=== PATIENT | male | born 1940 | race Caucasian/White ===

== ENCOUNTER 2018-02-01 12:01 | Inpatient (IN) | payer MEDICARE ==
[2018-02-01 12:53] LABS: #Eosinphils 0.1 thou/uL (0.0-0.7); #Lymphocytes 0.4 thou/uL (1.20-3.40); #Monocytes 0.5 thou/uL (0.11-0.59); #Neutrophils 2.6 thou/uL (1.40-6.50); %Basophils 0.3 % (0.0-1.0); %Lymphocytes 11.5 % (21.0-51.0); %Monocytes 12.4 % (0.0-10.0); %Neutrophils 71.8 % (42.0-75.0); Hemoglobin 12.3 g/dL (14.0-18.0); Mean Corpuscular HGB CONC 32.4 g/dL (32.0-36.0); Mean Corpuscular Hemoglobin 33.8 pg (27.0-31.0); Platelet Count 111 thou/uL (130-400); RBC Distribution Width 12.3 % (11.5-14.5); Red Blood Cell (RBC) Count 3.64 mill/uL (4.70-6.10); White Blood Cell (WBC) Count 3.6 thou/uL (4.8-10.8)
[2018-02-01 12:56] LABS: Bilirubin Negative (Negative); Blood, Urine Negative (Negative); Clarity CLEAR (Clear); Glucose, Urine (Dipstick) Negative (Negative); Leukocyte Negative (Negative); Nitrite Negative (Negative); Protein, Urine (Dipstick) Negative (Neg-Trace); Specific Gravity, Urine 1.011 (1.002-1.036); pH, Urine 7.5 (5.0-9.0)
[2018-02-01 13:13] LABS: Lactic Acid 0.6 mmol/L (0.5-2.2)
[2018-02-01 13:17] LABS: ALT (SGPT) 10 U/L (8-55); AST (SGOT) 20 U/L (5-34); Albumin 3.8 g/dL (3.4-4.8); Alkaline Phosphatase 60 U/L (40-150); Anion Gap 12 mmol/L (10-20); BUN (Urea Nitrogen) 22 mg/dL (8.4-25.7); Bilirubin, Total 1.1 mg/dL (0.2-1.2); CK (CPK) 56 U/L (30-200); Calc. Creatinine Clearance 0 mL/min (70-130); Calcium 8.6 mg/dL (7.8-10.44); Carbon Dioxide 33 mmol/L (23-31); Chloride 94 mmol/L (98-107); Estimated GFR-MDRD 65; Globulin 2.5 g/dL (2.4-3.5); Glucose 92 mg/dL (83-110); Potassium 3.7 mmol/L (3.5-5.1); Protein, Total 6.3 g/dL (5.8-8.1); Sodium 135 mmol/L (136-145)
[2018-02-01 13:20] LABS: Troponin I 0.021 ng/mL (< 0.028)
--- NOTE | 2018-02-01 13:46 | RAD ---
FRONTAL RADIOGRAPH CHEST PORTABLE UPRIGHT: Date: 02/01/18 COMPARISON: 12/15/16. HISTORY: Cough. FINDINGS: Stable three lead left subclavian AICD. No pneumothorax is evident. There is new increased density in the left lung base with blunting of the left costophrenic angle and obscuration of the left hemidiap hragm. Extensive coronary arterial calcification and/or stent material noted. There is blunting of th e costophrenic angles suggesting small bilateral pleural effusions. There is pulmonary vascular conge stion and perihilar interstitial prominence. Stable prominence of the cardiac silhouette. IMPRESSION: Pulmonary vascular congestion with perihilar interstitial prominence, bilateral small pleural effusio ns, and focal opacity in the left base. Findings suggest pulmonary edema. Infectious pneumonitis or a spiration cannot be excluded. Follow-up imaging following treatment advised. POS: [facility]
[2018-02-01 16:31] LABS: Troponin I 0.017 ng/mL (< 0.028)
[2018-02-01] MEDS ORDERED: Acetaminophen 325 MG TAB PO PRN (17:05)
[2018-02-01] MEDS ORDERED: Ondansetron HCl/PF 4 MG/2 ML Vial IVP PRN (17:05)
[2018-02-01] MEDS ORDERED: Ondansetron ODT 4 MG TAB SL PRN (17:05)
[2018-02-01] MEDS ORDERED: Furosemide 40 MG/4 ML VIAL SLOW IVP SCH (17:56)
[2018-02-01] MEDS ORDERED: Acetaminophen 500 MG TAB PO PRN (17:56)
[2018-02-01] MEDS ORDERED: Diabetic Tussin 200 MG/10 ML UDCUP PO PRN (17:56)
--- NOTE | 2018-02-01 18:17 | PDOC.EVN ---
Event Note - Event Note Event Note: ACP Note: Discussed goals of care and code status this pm with patient, spouse and daughter. End-stage CHF on current maximal medical therapy with progressive decline, weight loss and limited mobility. Current FULL CODE status but will discuss further with family. Wishing to pursue Palliative care screening and discuss palliative therapy options. Overall poor prognosis given progressive clinical decline, end-stage CHF. Family verbalizes understanding and agreement with current plan.
[2018-02-01] MEDS: Rosuvastatin 20 MG TAB PO SCH (21:56)
[2018-02-01] MEDS: Rivaroxaban 10 MG TAB PO SCH (21:56)
[2018-02-01] MEDS: Clopidogrel Bisulfate 75 MG TAB PO SCH (21:58)
[2018-02-01] MEDS: Famotidine 20 MG TAB PO SCH (21:58)
[2018-02-01] MEDS: Docusate 100 MG CAP PO SCH (21:59)
[2018-02-01] MEDS: Magnesium Oxide 400 MG TAB PO SCH (22:00)
[2018-02-01] MEDS: traMADol HCl 50 MG TAB PO SCH (22:00)
[2018-02-01] MEDS: Sacubitril 24.5 MG/Valsartan 25.5 MG TABLET PO SCH (22:01)
--- NOTE | 2018-02-02 00:44 | HP ---
DATE OF ADMISSION: 02/01/2018 PRIMARY CARE PROVIDER: Dr. Darrian Ty. PRIMARY TORPEDO WORKER: Dr. Earle Araujo. CHIEF COMPLAINT: Cough and shortness of breath. HISTORY OF PRESENT ILLNESS: This is a 77-year-old male, who presents to [facility] after complaining of increasing cough, productive of purulent sputum, and shortness of b reath over the last 3-4 days. The patient apparently was recently treated for mild bronchitis with a prednisone taper by his primary care provider, finishing the prednisone approximately 48 hours prior to this evaluation. The patient admits to recent URI like symptoms treated with prednisone and supp ortive management. The patient also with significant history of congestive heart failure on Lasix an d Entresto. The patient also uses home oxygen at 2 liters per minute by nasal cannula. The family r eports seeing increased swelling in the thighs and lower back area with associated shortness of breat h. The patient denied any specific documented fever, but states the sputum he is producing is dark b rown and thick. Family reports the patient has a decreased energy level, as well as weight loss and has been attempting to increase his dietary intake over the last several weeks. The patient was cristina san admitted to [facility] in 12/2017 after an apparent syncopal episode secondary to over d iuresis and hypovolemia. In the emergency room, the patient was noted with hypotension with systolic s ranging in 70s to low 100s. The patient did not receive any specific medical intervention and unde rwent interrogation of his pacemaker/defibrillator device. Per verbal report through the emergency r oom, the patient's upper lead was nonfunctioning since 01/05/2018. PAST MEDICAL HISTORY: 1. Ischemic cardiomyopathy with ejection fraction of 20% to 25%. 2. Chronic systolic congestive heart failure. 3. Hyperlipidemia. 4. History of atrial fibrillation. 5. History of syncope secondary to over diuresis. 6. Anorexia with weight loss. 7. Carotid artery disease. 8. Coronary artery disease. PAST SURGICAL HISTORY: 1. Status post pacemaker/AICD placement. 2. Status post carotid artery surgery. 3. Status post cervical spinal fusion. 4. Status post cardiac stent placement. CURRENT MEDICATIONS: 1. Biotin 1 mg p.o. daily. 2. Coreg 3.125 mg p.o. b.i.d. 3. Zyrtec 10 mg p.o. daily. 4. Plavix 37.5 mg p.o. at bedtime. 5. Digoxin 0.125 mg p.o. daily. 6. Colace 100 mg p.o. b.i.d. 7. Dutasteride 0.5 mg p.o. daily. 8. Magnesium oxide 400 mg p.o. b.i.d. 9. Protonix 40 mg p.o. daily. 10. Ranexa 500 mg p.o. b.i.d. 11. Xarelto 15 mg p.o. at bedtime. 12. Crestor 20 mg p.o. daily. 13. Entresto 24/26 mg 1 tab p.o. b.i.d. 14. Tramadol 50 mg p.o. q.i.d. p.r.n. 15. Lasix 40 mg p.o. q.a.m. and 20 mg p.o. at bedtime. 16. Klor-Con 10 mEq p.o. daily. ALLERGIES: TETANUS. FAMILY HISTORY: Positive for hypertension. SOCIAL HISTORY: The patient is , accompanied by his in the hospital. Resides in [place], [place]. Retired. No current alcohol, tobacco or illicit drug use. Quit tobacco use approximately 20 years prior to this evaluation. REVIEW OF SYSTEMS: The following complete review of systems was negative, unless otherwise mentioned in the HPI or below: Constitutional: Weight loss or gain, ability to conduct usual activities. Sk in: Rash, itching. Eyes: Double vision, pain. ENT/Mouth: Nose bleeding, neck stiffness, pain, te nderness. Cardiovascular: Palpitations, dyspnea on exertion, orthopnea. Respiratory: Shortness of breath, wheezing, cough, hemoptysis, fever or night sweats. Gastrointestinal: Poor appetite, abdom inal pain, heartburn, nausea, vomiting, constipation, or diarrhea. Genitourinary: Urgency, frequenc y, dysuria, nocturia. Musculoskeletal: Pain, swelling. Neurologic/Psychiatric: Anxiety, depressio n. Allergy/Immunologic: Skin rash, bleeding tendency. Otherwise negative except as stated per HPI. PHYSICAL EXAMINATION: VITAL SIGNS: On admission in the emergency room, blood pressure 100/70, pulse 75, respiratory rate 1 6, temperature 98.3 degrees Fahrenheit, O2 saturation 92% on room air. GENERAL APPEARANCE: This is a 77-year-old male, alert and oriented x3, pleasant, in no acute distres s. HEENT: Pupils are equal, round, and reactive to light and accommodation. Extraocular muscles are in tact. No scleral icterus, no conjunctival injection. Nares patent. OP is clear. Teeth in fair rep air. NECK: Supple. No cervical adenopathy, no thyromegaly, no carotid bruits, no JVD appreciated. Cervi kary spine with full active and passive range of motion. CHEST: Bilateral coarse breath sounds with bibasilar crackles. CARDIOVASCULAR: S1, S2, without noted murmur, rub or gallop. Left upper chest wall with AICD device in place. ABDOMEN: Scaphoid, nontender, nondistended. Bowel sounds are positive in all four quadrants. There is no hepatosplenomegaly, no abdominal bruits, no rebound or guarding appreciated. EXTREMITIES: Warm and dry with fair turgor. Mild pitting edema to the mid shins bilaterally. Mild edema noted in the medial and posterior thigh. Pulses are palpable distally at the dorsalis pedis, p osterior tibial, and popliteal arteries bilaterally. Capillary refill less than 2 seconds. NEUROLOGIC: Cranial nerves II-XII are grossly intact. No focal or lateralizing signs appreciated. PERTINENT LABORATORY AND X-RAY FINDINGS: Sodium 135, potassium 3.7, chloride 94, CO2 of 33, BUN 22, creatinine 1.10, estimated GFR 65, glucose 92, calcium 8.6. Lactic acid level 0.6. LFTs within norm al limits. BNP 3689, previously noted 4525 on 11/16/2017. Troponin I negative x2. CBC showed a [facility] te blood cell count of 3.6, hemoglobin 12, hematocrit 38, MCV 104, platelet count 111 with 72% neutro phils. Urinalysis negative. Portable chest x-ray dated 02/01/2018 showed pulmonary vascular promine nce. Bilateral pleural effusions with focal opacity in the left lung base. EKG dated 02/01/2018 by my interpretation shows a ventricular paced rhythm with heart rates in the 70s. ASSESSMENT AND PLAN: 1. Acute on chronic systolic congestive heart failure. The patient will be admitted to the telemetr y unit. We will continue Lasix 20 mg IV b.i.d. Consult Cardiology Service in the a.m. Continue to monitor I's and O's and daily weight. Continue digoxin 0.125 mg daily, in addition to Entresto 24/26 mg p.o. b.i.d. Obtain most recent 2D transthoracic echocardiogram. 2. Hypotension. Questionable chronic component due to multiple antihypertensives including Entresto . Titrate Lasix to clinical response. Serial blood pressure monitoring. 3. Left lower lobe infiltrate. Questionable infectious process with superimposed effusion. Initiat e Levaquin 500 mg IV daily. Start DuoNebs q.4 hours. Blood cultures x2 pending. 4. Malfunctioning pacemaker lead. We will consult Electrophysiology Service for evaluation. Contin ue telemetry monitoring. 5. Anorexia. We will consult dietitian services. Start Ensure Enlive b.i.d. 6. Prophylaxis. Sequential compression devices while in bed. Pepcid 20 mg p.o. b.i.d. PT evaluati on for functional assessment. 7. Code status is FULL. Surrogate medical decision maker is patient's spouse. Consult Palliative C are Services for goals of care.
[2018-02-02] MEDS: traMADol HCl 50 MG TAB PO SCH ×4 (03:30→21:18)
[2018-02-02] MEDS ORDERED: Furosemide 20 MG/2 ML VIAL SLOW IVP SCH (06:00)
[2018-02-02 06:34] LABS: Band 20 % (5-11); Eosinophils 3 % (0-10); Hemoglobin 11.4 g/dL (14.0-18.0); Lymphocytes 17 % (21-51); MDiff Complete? YES; Mean Corpuscular HGB CONC 32.5 g/dL (32.0-36.0); Mean Corpuscular Hemoglobin 33.8 pg (27.0-31.0); Mean Platelet Volume 8.1 fL (7.4-10.4); Monocytes 6 % (0-10); Neutrophil 53 % (42-75); PLT Morphology Comment Appears Decreased; Platelet Count 106 thou/uL (130-400); RBC Distribution Width 12.2 % (11.5-14.5); Red Blood Cell (RBC) Count 3.37 mill/uL (4.70-6.10); White Blood Cell (WBC) Count 4.4 thou/uL (4.8-10.8)
[2018-02-02 06:35] LABS: Anion Gap 12 mmol/L (10-20); BUN (Urea Nitrogen) 20 mg/dL (8.4-25.7); Calc. Creatinine Clearance 53 mL/min (70-130); Calcium 8.4 mg/dL (7.8-10.44); Carbon Dioxide 34 mmol/L (23-31); Chloride 94 mmol/L (98-107); Estimated GFR-MDRD 71; Glucose 93 mg/dL (83-110); Potassium 3.7 mmol/L (3.5-5.1); Sodium 136 mmol/L (136-145)
[2018-02-02] MEDS: Potassium Chloride 10 MEQ TAB PO SCH (08:53)
[2018-02-02] MEDS: Famotidine 20 MG TAB PO SCH ×2 (08:53→21:11)
[2018-02-02] MEDS: Magnesium Oxide 400 MG TAB PO SCH ×2 (08:54→21:15)
[2018-02-02] MEDS: Dutasteride 0.5 MG CAP PO SCH (08:55)
[2018-02-02] MEDS: Sacubitril 24.5 MG/Valsartan 25.5 MG TABLET PO SCH ×2 (08:56→21:17)
[2018-02-02] MEDS: Docusate 100 MG CAP PO SCH ×2 (08:56→21:15)
[2018-02-02] MEDS ORDERED: Non-Formulary Item 1 EACH (Biotin [Biotin] 1 MG) PO SCH (09:00)
[2018-02-02] MEDS ORDERED: Loratadine 10 MG TAB PO SCH (09:00)
[2018-02-02] MEDS ORDERED: Digoxin 0.125 MG TAB PO SCH (09:00)
--- NOTE | 2018-02-02 09:41 | RAD ---
AP VIEW CHEST: 02/02/2018 HISTORY: Shortness of breath. COMPARISON: 02/01/2018 FINDINGS: AP view chest demonstrates coronary artery endovascular stents in place. There is a dual-lead intrac ardiac defibrillator. EKG leads are seen over the chest. Cardiomegaly is seen. Pulmonary vascular congestion is seen. Calcification and ectasia of the aorta is seen. There are tiny bilateral pleural effusions present. The radiographic appearance of the chest is stab le, unchanged since the previous exam from 02/01/2018. IMPRESSION: Stable anterior-posterior view chest with tiny bilateral pleural effusions, not significantly differe nt than previous chest radiograph from 02/01/2018. POS: [facility]
[2018-02-02 10:32] VITALS: BMI 18.0
--- NOTE | 2018-02-02 13:20 | PDOC.PN ---
- Subjective Encounter Start Date: 02/02/18 Encounter Start Time: 13:05 Subjective: f/u for acute/chronic syst CHF, dyspnea, deconditioning and A-fib. -: Still with productive cough. Weak and sleeping frequently. - Objective Resuscitation Status: Resuscitation Status DNR:Do Not Resuscitate MAR Reviewed: Yes Vital Signs & Weight: Vital Signs (12 hours) Temp Pulse Resp BP Pulse Ox 02/02/18 12:00 99.2 F 80 16 117/59 L 95 02/02/18 10:41 87 16 02/02/18 08:53 77 02/02/18 07:43 99.5 F 77 15 124/63 99 02/02/18 06:13 78 16 02/02/18 04:00 99.9 F H 78 24 H 124/69 96 Weight Admit Weight 136 lb 2 oz Weight 132 lb 12.8 oz I&O: 02/01/18 02/02/18 02/03/18 06:59 06:59 06:59 Intake Total 250 Output Total 1050 Balance -800 Result Diagrams: 02/02/18 05:57 02/02/18 05:57 Additional Labs: Microbiology 02/01/18 12:43 Venous blood - Left Arm Blood Culture - Preliminary Specimen has been received and culture in progress. No Growth to date. 02/01/18 12:36 Venous blood - Right Arm Blood Culture - Preliminary Specimen has been received and culture in progress. No Growth to date. Laboratory Tests 02/01/18 02/01/18 02/02/18 12:43 12:43 05:57 WBC 3.6 L Neutrophils % (Manual) 53 Band Neuts % (Manual) 20 H Lactic Acid 0.6 Radiology Reviewed by me: Yes (PA/LAT CXR - bibasilar effusions) EKG Reviewed by me: Yes (Tele - Paced) Phys Exam - Physical Examination alert, responsive HEENT: PERRLA, sclera anicteric, oral pharynx no lesions Neck: no nodes, no JVD, supple, full ROM coarse sounds in bases holosystolic murmur LUSB Gastrointestinal: soft, non-tender, no distention, positive bowel sounds Musculoskeletal: pulses present, edema present Neurological: normal sensation, moves all 4 limbs Skin: no rash, normal turgor, cap refill <2 seconds Dx/Plan (1) Acute on chronic systolic heart failure Code(s): I50.23 - ACUTE ON CHRONIC SYSTOLIC (CONGESTIVE) HEART FAILURE Status : Resolved Comment: EF 25-30 %, continue Lasix IV (2) Ischemic cardiomyopathy Code(s): I25.5 - ISCHEMIC CARDIOMYOPATHY Status: Chronic Comment: EF 25%, AICD in place, continue med mgmt (3) Pneumonia Code(s): J18.9 - PNEUMONIA, UNSPECIFIED ORGANISM Status: Suspected Qualifiers: Laterality: bilateral Comment: Suspected give chronic lower lobe effusions, continue Levaquin 500mg IV daily (4) Chronic anticoagulation Code(s): Z79.01 - ACTIVITIES CONCIERGE (CURRENT) USE OF ANTICOAGULANTS Status: Chronic Comment: Continue Xarelto 15mg daily (5) Chronic a-fib Code(s): I48.2 - CHRONIC ATRIAL FIBRILLATION Status: Chronic Comment: EP consulted, considering cardioversion (6) Hypotension Status: Acute Comment: Likely multifactorial given cardiomyopathy and syst CHF , monitor clinically - Plan plan discussed w/ family, continue antibiotics, PT/OT, social science teacher, DVT proph w/SCDs Continue Lasix 20mg BID -: continue Levaquin 500mg IV daily -: Palliative care consult, considering Hospice -: Continue Plavix and Digoxin -: AM lab: BMP * .
--- NOTE | 2018-02-02 15:09 | CON ---
DATE OF CONSULTATION: 02/02/2018 HISTORY OF PRESENT ILLNESS: Patient is a 77-year-old gentleman, who presented with increasing dyspne a. The patient has a long history of severe ischemic cardiomyopathy. The patient has a history of m ultiple previous cardiac stents. He also has chronic atrial fibrillation. The patient has had place ment of previous automatic implantable cardioverter-defibrillator. The patient was in usual state of health when he started having increasing dyspnea. The patient noted to having increasing sputum, da rk-colored sputum. The patient denied having any chest discomfort. PAST MEDICAL HISTORY: Significant for, 1. Ischemic cardiomyopathy. 2. Severe artery disease. 3. Hypertension. 4. Dyslipidemia. 5. Chronic atrial fibrillation. PAST SURGICAL HISTORY: He has had cervical spinal surgery, carotid artery surgery. MEDICATIONS: See nursing list. ALLERGIES: Allergic to TETANUS. SOCIAL HISTORY: Nonsmoker. REVIEW OF SYSTEMS: Noticeable for increasing lower extremity swelling. PHYSICAL EXAMINATION: GENERAL: This is a thin gentleman. VITAL SIGNS: With a temperature of 99.9 and blood pressure 124/69. NECK: Full. LUNGS: Crackles in both bases. HEART: Regular rate and rhythm. Normal S1 and S2. A 1/6 systolic murmur. ABDOMEN: Mildly distended. EXTREMITIES: Show mild bilateral edema. LABORATORY DATA: White blood cell count 4.4, hemoglobin 11.4, hematocrit 35.0, platelets 106. Sodiu m was 136, potassium 3.7, chloride 94, bicarbonate 34, BUN 20, creatinine is 1.0. Troponin was 0.017 . His EKG reveals him to have electronic ventricular pacemaker. Chest x-ray revealed small bilatera l effusions with mild pulmonary vascular congestion. IMPRESSION: 1. Possible sepsis/pneumonia. 2. Congestive heart failure. 3. Severe cardiomyopathy. 4. Severe coronary artery disease. 5. History of automatic implantable cardioverter-defibrillator . 6. Cachexia. This gentleman is febrile with productive sputum. He also has evidence of a bandemia. From a cardia c standpoint, we would continue IV antibiotics. We will add low dose Aldactone. We will follow this patient with you through his hospitalization.
[2018-02-02] MEDS: Furosemide 20 MG TAB PO SCH (15:26)
[2018-02-02] MEDS: Carvedilol 3.125 MG TAB PO SCH (17:38)
[2018-02-02] MEDS: ZYRTEC 10 MG PO SCH (21:05)
[2018-02-02] MEDS: Rivaroxaban 10 MG TAB PO SCH (21:08)
[2018-02-02] MEDS: Rosuvastatin 20 MG TAB PO SCH (21:11)
[2018-02-02] MEDS: Digoxin 0.125 MG TAB PO SCH (21:12)
[2018-02-02] MEDS: Clopidogrel Bisulfate 75 MG TAB PO SCH (21:13)
[2018-02-02] MEDS: Spironolactone 25 MG TAB PO SCH (21:22)
--- NOTE | 2018-02-02 23:06 | CON ---
DATE OF CONSULTATION: 02/02/2018 REFERRING PHYSICIAN: Dr. Michel Phillips. REASON FOR CONSULTATION: Atrial fibrillation and biventricular ICD management. HISTORY OF PRESENT ILLNESS: Mr. Dodd is a patient well known to our [facility], for both inclusion of a biventricular ICD as well as carried a diagnosis of persistent atrial fibrill ation. He was last seen in clinic on 11/16/2017 and at that time his atrial arrhythmias has been gentry te for some time, but he has remained on Xarelto for anticoagulation. His ICD was functioning normal ly, but has suboptimal ventricular pacing related to frequent ventricular ectopy. His base rate was increased to 75 beats per minute. Also, his core view had suggested fluid overload at that time and p.r.n. metolazone was added to his medical regimen. Today, we find that he is readmitted to the hosp ital with congestive heart failure exacerbation and his device was interrogated in the emergency room revealing ongoing atrial fibrillation since mid December. Despite his atrial fibrillation, his ventri cular pacing is actually optimized and he is rate controlled and pacing regularly at around 75 beats per minute. He is admitted for fluid management and is also being treated for pneumonia. He has sev erely decompensated with acute on chronic systolic heart failure and Palliative Care has been consult ed. Today Mr. Dodd is resting in bed, will fall asleep intermittently in the middle of conversation. Marcia nunesy members at bedside and largely seeks for him. He has been having persistent cough, progressive shortness of breath and then began coughing up some brown sputum, prompting via hospital visit. He denies any heart racing, palpitation, chest pain or pressure, syncope, near syncope, stroke or stroke -like symptoms. He has not had any perceived ICD discharges, may have just noticed that he is weak, somnolent with a productive cough and now occasionally blood-tinged sputum. He is severely deconditi oned. REVIEW OF SYSTEMS: Twelve-point review of systems was conducted and is negative except that listed a lili in the HPI. PAST MEDICAL HISTORY: 1. Chronic congestive heart failure with ischemic cardiomyopathy, 2D echocardiogram from 04/23/2016 reveals EF 30% to 35%. 2. History of persistent atrial fibrillation, requiring cardioversion in 2016, currently on Xarelto and Plavix. 3. Biventricular ICD implanted 07/21/[address] [employer] analytical scientist with the LV lead reposition ed in the lateral vein on 07/05/2016. 4. Coronary artery disease with revascularization in 01/2015. 5. Hypertension. 6. Hyperlipidemia. 7. History of bradycardia, corrected by the pacemaker. ALLERGIES: Includes TETANUS and IMMUNOGLOBULIN. HOME MEDICATIONS: Include Tylenol as needed, digoxin 0.125 mg p.o. daily, Plavix 0.5 mg p.o. at bedt fer, Zyrtec 10 mg p.o. daily, Coreg 3.125 mg p.o. b.i.d., biotin daily, Lasix 40 mg p.o. at 0800 hour s and 1400 hours, dutasteride 0.5 mg p.o. daily, Colace 100 mg p.o. b.i.d., Xarelto 15 mg p.o. at bed time, Ranexa 500 mg p.o. b.i.d., Klor-Con 10 mEq tab p.o. q.a.m. with meals, Protonix 40 mg p.o. milla y, magnesium oxide 400 mg p.o. b.i.d., tramadol 50 mg q.i.d., Entresto 24 mg - 26 mg p.o. b.i.d., and Crestor 20 mg p.o. at bedtime. FAMILY HISTORY: Positive for hypertension. SOCIAL HISTORY: , accompanied by in the hospital. Resides in [place]. He is retired. Negative for alcohol, tobacco or illicit drug use. Quit tobacco 20 years prior to this year. PHYSICAL EXAMINATION: VITAL SIGNS: Most recent vital signs are 99.2 degrees Fahrenheit, pulse is 80, blood pressure 117/59 , respirations 16, oxygen is 95% on 3 liters via nasal cannula. GENERAL: Mr. Dodd is a very pleasant, elderly gentleman, who appears much older than his stated ag e. He is severely deconditioned and cachectic. He is somnolent during the exam and frequently nods off in conversation. He is in no apparent or acute distress. HEENT: Head is normocephalic, atraumatic. Sclerae are anicteric. EOMs are intact. His pupils are equal, round, reactive and accommodating to light. His oral mucosa is pale and teeth are adequate de ntition. NECK: Supple, with no jugular venous distention. Thyroid is nonpalpable. LUNGS: His breath sounds are coarse bilaterally with bibasilar crackles. Respirations are even and unlabored with good bilateral excursion. HEART: Rate is regular. PMI is nondisplaced. The device was seated at the left infraclavicular fos sa without swelling, bruising, erosion, or drainage. EXTREMITIES: Warm and dry to touch with mild edema noted bilateral lower extremities. ABDOMEN: Soft, nontender. Hepatojugular reflux is mildly positive. There are no palpable masses an d positive bowel sounds are noted throughout. NEUROLOGIC: Grossly intact and nonfocal. Gait was not assessed. DATABASE: His device interrogation reveals [employer] biventricular ICD, lead pa rameters are adequate and biventricular pacing has optimized and currently at 94%. Interrogation rev eals an ongoing atrial fibrillation episodes starting on 01/05/2018, that also correlates with fluid retention suggested by a core view of fluid monitoring. No ventricular arrhythmias have been noted. LABORATORY DATA: WBC 4.4, hemoglobin 11.4, hematocrit 35, platelet count is 106. Chemistry: Sodium 136, potassium 3.7, BUN is 20, creatinine is 1.02. ALT and AST are within normal limits. BNP is 36 88.5. Chest x-ray on 02/02/2018, stable with tiny bilateral pleural effusions, not significantly miko nge from prior exam the day prior. IMPRESSION: 1. Acute on chronic congestive and systolic heart failure. Patient has been diuresed. 2. Biventricular ICD device interrogation reveals a normal functioning device. There is no malfunct ioning pacemaker lead, what it does reflect is ongoing congestive heart failure and fluid retention t hat correlates with onset of atrial fibrillation starting on the , though there is rate control a nd actually improved ventricular pacing from November when patient was last seen. He is rate controlled with his atrial fibrillation. 3. Persistent atrial fibrillation with ongoing episodes in 01/05/2018. Continue oral anticoagulatio n with Xarelto and consider cardioversion once patient's fluid status has been optimized. 4. Left lower lobe infiltrate, concerning for pneumonia and being treated with Levaquin. RECOMMENDATIONS: As mentioned above, continue with oral anticoagulation for stroke prophylaxis and c onsider cardioversion for restoring normal sinus rhythm. Once the patient's acute issues have been a ddressed and is more euvolemic and has had a potential pneumonia, treated. He is rate controlled and largely asymptomatic with this arrhythmia though it is certainly not going to help with his congesti ve heart failure. If cardioversion fails, would consider antiarrhythmic therapy at that time, but fo r now would just recommend simple cardioversion potentially next week, Monday or Monday if his fluid levels are more stable. Thank you for allowing us to participate in the care of this patient.
[2018-02-03] MEDS: traMADol HCl 50 MG TAB PO SCH ×4 (02:25→20:38)
[2018-02-03 06:11] LABS: Anion Gap 11 mmol/L (10-20); BUN (Urea Nitrogen) 18 mg/dL (8.4-25.7); Calc. Creatinine Clearance 61 mL/min (70-130); Calcium 8.2 mg/dL (7.8-10.44); Carbon Dioxide 31 mmol/L (23-31); Chloride 95 mmol/L (98-107); Estimated GFR-MDRD 86; Glucose 90 mg/dL (83-110); Potassium 3.6 mmol/L (3.5-5.1); Sodium 133 mmol/L (136-145)
[2018-02-03] MEDS: Spironolactone 25 MG TAB PO SCH (09:01)
[2018-02-03] MEDS: Furosemide 20 MG TAB PO SCH ×2 (09:01→15:19)
[2018-02-03] MEDS: Carvedilol 3.125 MG TAB PO SCH ×2 (09:01→18:08)
[2018-02-03] MEDS: Famotidine 20 MG TAB PO SCH ×2 (09:02→20:36)
[2018-02-03] MEDS: Sacubitril 24.5 MG/Valsartan 25.5 MG TABLET PO SCH ×2 (09:02→20:38)
[2018-02-03] MEDS: Potassium Chloride 10 MEQ TAB PO SCH (09:03)
[2018-02-03] MEDS: Magnesium Oxide 400 MG TAB PO SCH ×2 (09:04→20:38)
[2018-02-03] MEDS: Docusate 100 MG CAP PO SCH ×2 (09:04→20:39)
[2018-02-03] MEDS: Dutasteride 0.5 MG CAP PO SCH (09:05)
[2018-02-03] MEDS: Sodium Chloride 0.9% 10 ML ONE ×2 (09:05→18:43)
--- NOTE | 2018-02-03 09:56 | PDOC.CTH ---
<Jennifer Cerda - Last Filed: 02/03/18 09:54> Cardiology Progress Note - Subjective No new complaints. Up walking with cardiac rehab. Still with cough. - Objective Vital Signs Temp Pulse Resp BP Pulse Ox 02/03/18 08:00 98.5 F 77 16 118/57 L 99 02/03/18 07:06 100 02/03/18 07:02 75 12 02/03/18 04:00 99.7 F H 73 18 107/56 L 97 Admit Weight 136 lb 2 oz Weight 133 lb 6 oz 02/02/18 02/03/18 02/04/18 06:59 06:59 06:59 Intake Total 250 1025 Output Total 1050 800 Balance -800 225 - Physical Examination General/Neuro: alert & oriented x3 Neck: no JVD present Lungs: other: (bilateral basilar rales; right exp wheeze; scattered rhonchi) Heart: RRR Extremities: other: (no edema) - Telemetry Telemetry Rhythm: BiV pacing - Labs Result Diagrams: 02/02/18 05:57 02/03/18 05:04 Troponin/CKMB CK-MB (CK-2) 1.0 ng/mL (0-6.6) 02/01/18 12:42 Troponin I 0.017 ng/mL (< 0.028) 02/01/18 15:52 - Assessment/Plan 1. Acute on chronic systolic CHF 2. ICMO 3. Persistent AF 4. s/p BiV ICD 5. Possible PNA Continue diruresis with lasix and aldactone. Antibiotics per primary team. EP considering DCCV. No changes today. <Cl Hicks - Last Filed: 02/03/18 13:33> Cardiology Progress Note - Objective Vital Signs Temp Pulse Pulse Pulse Resp BP BP 02/03/18 12:00 99.1 F 75 16 02/03/18 10:54 75 16 02/03/18 09:50 80 77 119/59 L 131/60 02/03/18 08:00 98.5 F 77 16 02/03/18 07:06 02/03/18 07:02 75 12 02/03/18 04:00 99.7 F H 73 18 BP Pulse Ox Pulse Ox Pulse Ox 02/03/18 12:00 108/61 97 02/03/18 10:54 02/03/18 09:50 93 L 96 02/03/18 08:00 118/57 L 99 02/03/18 07:06 100 02/03/18 07:02 02/03/18 04:00 107/56 L 97 Admit Weight 136 lb 2 oz Weight 133 lb 6 oz 02/02/18 02/03/18 02/04/18 06:59 06:59 06:59 Intake Total 250 1025 Output Total 1050 800 Balance -800 225 - Labs Result Diagrams: 02/02/18 05:57 02/03/18 05:04 Troponin/CKMB CK-MB (CK-2) 1.0 ng/mL (0-6.6) 02/01/18 12:42 Troponin I 0.017 ng/mL (< 0.028) 02/01/18 15:52 - Assessment/Plan Pt seen and examined. Agree with above. No other changes
--- NOTE | 2018-02-03 12:42 | EKG ---
Test Reason : Blood Pressure : / mmHG Vent. Rate : 075 BPM Atrial Rate : 441 BPM P-R Int : 000 ms QRS Dur : 192 ms QT Int : 458 ms P-R-T Axes : 000 -82 095 degrees QTc Int : 511 ms Suspect unspecified pacemaker failure Ventricular-paced rhythm Abnormal ECG Confirmed by FAVIO SHAIKH, DANYELLE ([id number]), social work professor CRISSY RIVAS ([id number]) on 02/03/2018 12:42:04 PM Referred By: Confirmed By:DANYELLE STAHL MD
--- NOTE | 2018-02-03 16:59 | PDOC.PN ---
- Subjective Encounter Start Date: 02/03/18 Encounter Start Time: 16:00 Subjective: f/u for acute/chronic syst CHF, deconditioning and ?PNA. Still weak with -: some productive sputum. Ambulated with cardiac rehab in room. Eating ok. - Objective Resuscitation Status: Resuscitation Status DNR:Do Not Resuscitate MAR Reviewed: Yes Vital Signs & Weight: Vital Signs (12 hours) Temp Pulse Pulse Pulse Resp BP BP 02/03/18 16:09 73 18 02/03/18 15:36 02/03/18 15:22 97.7 F 75 16 02/03/18 12:00 99.1 F 75 16 02/03/18 10:54 75 16 02/03/18 09:50 80 77 119/59 L 131/60 02/03/18 08:00 98.5 F 77 16 02/03/18 07:06 02/03/18 07:02 75 12 BP Pulse Ox Pulse Ox Pulse Ox 02/03/18 16:09 02/03/18 15:36 97 02/03/18 15:22 114/58 L 96 02/03/18 12:00 108/61 96 02/03/18 10:54 02/03/18 09:50 93 L 96 02/03/18 08:00 118/57 L 99 02/03/18 07:06 100 02/03/18 07:02 Weight Admit Weight 136 lb 2 oz Weight 133 lb 6 oz I&O: 02/02/18 02/03/18 02/04/18 06:59 06:59 06:59 Intake Total 250 1025 Output Total 1050 800 Balance -800 225 Result Diagrams: 02/02/18 05:57 02/03/18 05:04 Additional Labs: Microbiology 02/01/18 12:43 Venous blood - Left Arm Blood Culture - Preliminary Specimen has been received and culture in progress. No Growth to date. 02/01/18 12:36 Venous blood - Right Arm Blood Culture - Preliminary Specimen has been received and culture in progress. No Growth to date. Laboratory Tests 02/01/18 02/01/18 02/02/18 12:43 12:43 05:57 WBC 3.6 L Neutrophils % (Manual) 53 Band Neuts % (Manual) 20 H Lactic Acid 0.6 EKG Reviewed by me: Yes (Tele - V-paced) Phys Exam - Physical Examination frail, falls asleep occasionally, responds when questioned or engaged directly HEENT: PERRLA, sclera anicteric, oral pharynx no lesions Neck: no nodes, no JVD, supple, full ROM coarse sounds bilat S1, S2 Cardiovascular: RRR, no significant murmur, no rub, gallop Gastrointestinal: soft, non-tender, no distention, positive bowel sounds dependent edema in elbow and calf region Neurological: normal sensation, moves all 4 limbs Skin: normal turgor, cap refill <2 seconds Dx/Plan (1) Acute on chronic systolic heart failure Code(s): I50.23 - ACUTE ON CHRONIC SYSTOLIC (CONGESTIVE) HEART FAILURE Status : Resolved Comment: EF 25-30 %, continue Lasix 20mg po BID, end-stage process (2) Ischemic cardiomyopathy Code(s): I25.5 - ISCHEMIC CARDIOMYOPATHY Status: Chronic Comment: EF 25%, AICD in place, continue med mgmt (3) Pneumonia Code(s): J18.9 - PNEUMONIA, UNSPECIFIED ORGANISM Status: Suspected Qualifiers: Laterality: bilateral Comment: Suspected give chronic lower lobe effusions, continue Levaquin 500mg IV daily (4) Chronic anticoagulation Code(s): Z79.01 - SENIOR CARE (CURRENT) USE OF ANTICOAGULANTS Status: Chronic Comment: Continue Xarelto 15mg daily (5) Chronic a-fib Code(s): I48.2 - CHRONIC ATRIAL FIBRILLATION Status: Chronic Comment: EP consulted, considering cardioversion (6) Hypotension Status: Acute Comment: Likely multifactorial given cardiomyopathy and syst CHF , monitor clinically - Plan plan discussed w/ family, continue antibiotics, PT/OT, social staff worker, respiratory therapy, out of bed/ambulate, DVT proph w/SCDs Continue supportive mgmt -: Continue Levaquin 500mg IV daily -: Duonebs and O2 support -: Continue Lasix 20mg BID -: Pt/family wishing to pursue hospice at home on d/c * Likely home on 02/05/18
[2018-02-03] MEDS: Clopidogrel Bisulfate 75 MG TAB PO SCH (20:35)
[2018-02-03] MEDS: Rivaroxaban 10 MG TAB PO SCH (20:37)
[2018-02-03] MEDS: Rosuvastatin 20 MG TAB PO SCH (20:38)
[2018-02-03] MEDS: Digoxin 0.125 MG TAB PO SCH (20:39)
[2018-02-03] MEDS: ZYRTEC 10 MG PO SCH (20:46)
[2018-02-04] MEDS: traMADol HCl 50 MG TAB PO SCH ×4 (03:04→21:27)
[2018-02-04] MEDS: Acetaminophen 325 MG TAB PO SCH ×4 (03:04→21:26)
[2018-02-04] MEDS: Benzonatate 100 MG CAP PO PRN ×2 (03:08→23:13)
[2018-02-04] MEDS: Carvedilol 3.125 MG TAB PO SCH ×2 (10:14→17:32)
[2018-02-04] MEDS: Potassium Chloride 10 MEQ TAB PO SCH (10:14)
[2018-02-04] MEDS: Spironolactone 25 MG TAB PO SCH (10:14)
[2018-02-04] MEDS: Dutasteride 0.5 MG CAP PO SCH (10:15)
[2018-02-04] MEDS: Docusate 100 MG CAP PO SCH ×2 (10:15→21:58)
[2018-02-04] MEDS: Furosemide 20 MG TAB PO SCH (10:15)
[2018-02-04] MEDS: Famotidine 20 MG TAB PO SCH ×2 (10:15→21:28)
[2018-02-04] MEDS: Sacubitril 24.5 MG/Valsartan 25.5 MG TABLET PO SCH ×2 (10:16→21:28)
[2018-02-04] MEDS: Magnesium Oxide 400 MG TAB PO SCH ×2 (10:16→21:26)
--- NOTE | 2018-02-04 12:13 | PDOC.CTH ---
Cardiology Progress Note - Subjective Feels ok. No new complaints. - ROS shortness of breath - Objective Vital Signs Temp Pulse Pulse Pulse Resp BP BP 02/04/18 11:38 75 16 02/04/18 08:59 75 75 137/59 L 106/56 L 02/04/18 08:00 98.5 F 75 16 02/04/18 07:52 02/04/18 07:49 75 16 02/04/18 04:00 97.7 F 77 18 BP Pulse Ox Pulse Ox Pulse Ox 02/04/18 11:38 02/04/18 08:59 92 L 95 02/04/18 08:00 111/66 96 02/04/18 07:52 99 02/04/18 07:49 02/04/18 04:00 102/55 L 93 L Admit Weight 136 lb 2 oz Weight 137 lb 9.6 oz 02/03/18 02/04/18 02/05/18 06:59 06:59 06:59 Intake Total 1025 960 Output Total 800 850 Balance 225 110 - Physical Examination General/Neuro: alert & oriented x3 Neck: no JVD present Lungs: other: (bilateral rhonchi/rales) Heart: RRR Abdomen: NT/ND Extremities: other: (Trace to +1 MICK) - Labs Result Diagrams: 02/02/18 05:57 02/03/18 05:04 Troponin/CKMB CK-MB (CK-2) 1.0 ng/mL (0-6.6) 02/01/18 12:42 Troponin I 0.017 ng/mL (< 0.028) 02/01/18 15:52 - Assessment/Plan 1. Acute on chronic systolic CHF 2. ICMO 3. Persistent AF 4. s/p BiV ICD 5. Possible PNA Still appears volume overloaded. Continue diuretics. May need to add low-dose zaroxolyn. Continue antibiotics.
[2018-02-04] MEDS ORDERED: Furosemide 20 MG/2 ML VIAL SLOW IVP SCH (13:15)
--- NOTE | 2018-02-04 13:16 | PDOC.PN ---
- Subjective Encounter Start Date: 02/04/18 Encounter Start Time: 12:45 Subjective: f/u systolic CHF and suspected PNA on current Levaquin. Still weak but -: feels ok. Slept poorly overnight. - Objective Resuscitation Status: Resuscitation Status DNR:Do Not Resuscitate MAR Reviewed: Yes Vital Signs & Weight: Vital Signs (12 hours) Temp Pulse Pulse Pulse Resp BP BP 02/04/18 11:38 75 16 02/04/18 08:59 75 75 137/59 L 106/56 L 02/04/18 08:00 98.5 F 75 16 02/04/18 07:52 02/04/18 07:49 75 16 02/04/18 04:00 97.7 F 77 18 BP Pulse Ox Pulse Ox Pulse Ox 02/04/18 11:38 02/04/18 08:59 92 L 95 02/04/18 08:00 111/66 96 02/04/18 07:52 99 02/04/18 07:49 02/04/18 04:00 102/55 L 93 L Weight Admit Weight 136 lb 2 oz Weight 137 lb 9.6 oz I&O: 02/03/18 02/04/18 02/05/18 06:59 06:59 06:59 Intake Total 1025 960 Output Total 800 850 Balance 225 110 Result Diagrams: 02/02/18 05:57 02/03/18 05:04 EKG Reviewed by me: Yes (Tele - V-pacing) Phys Exam - Physical Examination Constitutional: NAD alert, responsive HEENT: PERRLA, sclera anicteric, oral pharynx no lesions Neck: no nodes, no JVD, supple, full ROM coarse sounds bilat, basilar crackles S1, S2 Cardiovascular: RRR, no significant murmur, no rub, gallop Gastrointestinal: soft, non-tender, no distention, positive bowel sounds Musculoskeletal: pulses present, edema present Neurological: normal sensation, moves all 4 limbs Psychiatric: A&O x 3 Skin: normal turgor, cap refill <2 seconds Dx/Plan (1) Acute on chronic systolic heart failure Code(s): I50.23 - ACUTE ON CHRONIC SYSTOLIC (CONGESTIVE) HEART FAILURE Status : Resolved Comment: EF 25-30 %, Lasix 20mg IV x 1 dose now then Lasix 20mg IV BID, end-stage process (2) Ischemic cardiomyopathy Code(s): I25.5 - ISCHEMIC CARDIOMYOPATHY Status: Chronic Comment: EF 25%, AICD in place, continue med mgmt (3) Pneumonia Code(s): J18.9 - PNEUMONIA, UNSPECIFIED ORGANISM Status: Suspected Qualifiers: Laterality: bilateral Comment: Suspected give chronic lower lobe effusions, continue Levaquin 500mg IV daily (4) Chronic anticoagulation Code(s): Z79.01 - PENITENTIARY (CURRENT) USE OF ANTICOAGULANTS Status: Chronic Comment: Continue Xarelto 15mg daily (5) Chronic a-fib Code(s): I48.2 - CHRONIC ATRIAL FIBRILLATION Status: Chronic Comment: EP consulted, considering cardioversion (6) Hypotension Status: Acute Comment: Likely multifactorial given cardiomyopathy and syst CHF , monitor clinically - Plan plan discussed w/ family, continue antibiotics, PT/OT, high school social studies tutor, respiratory therapy, DVT proph w/SCDs Continue supportive mgmt -: Lasix 20mg IV x 1 dose today then BID -: Discuss with EP about disabling AICD device 02/05 -: Continue Levaquin 500mg daily -: Likely home in 24h with wishes to transition to Hospice care * .
[2018-02-04] MEDS: Furosemide 20 MG/2 ML VIAL SLOW IVP SCH (13:21)
[2018-02-04] MEDS: Clopidogrel Bisulfate 75 MG TAB PO SCH (21:24)
[2018-02-04] MEDS: Rosuvastatin 20 MG TAB PO SCH (21:25)
[2018-02-04] MEDS: Digoxin 0.125 MG TAB PO SCH (21:25)
[2018-02-04] MEDS: Rivaroxaban 10 MG TAB PO SCH (21:29)
[2018-02-04] MEDS: ZYRTEC 10 MG PO SCH (21:48)
[2018-02-05] MEDS: traMADol HCl 50 MG TAB PO SCH ×3 (02:53→14:13)
[2018-02-05] MEDS: Acetaminophen 325 MG TAB PO SCH ×3 (02:54→14:13)
[2018-02-05] MEDS: Furosemide 20 MG/2 ML VIAL SLOW IVP SCH ×2 (06:02→14:13)
[2018-02-05] MEDS: Carvedilol 3.125 MG TAB PO SCH ×2 (09:24→16:32)
[2018-02-05] MEDS: Docusate 100 MG CAP PO SCH (09:25)
[2018-02-05] MEDS: Magnesium Oxide 400 MG TAB PO SCH (09:25)
[2018-02-05] MEDS: Spironolactone 25 MG TAB PO SCH (09:25)
[2018-02-05] MEDS: Potassium Chloride 10 MEQ TAB PO SCH (09:25)
[2018-02-05] MEDS: Dutasteride 0.5 MG CAP PO SCH (09:25)
[2018-02-05] MEDS: Famotidine 20 MG TAB PO SCH (09:25)
[2018-02-05] MEDS: Sacubitril 24.5 MG/Valsartan 25.5 MG TABLET PO SCH (09:26)
--- NOTE | 2018-02-05 12:04 | PRG ---
DATE OF SERVICE: 02/05/2018 SUBJECTIVE: Mr. Dodd seems to be doing somewhat better since his admission. He has no dizziness o r loss of consciousness. He is still coughing up brownish phlegm, but may be somewhat better than be fore. OBJECTIVE: VITAL SIGNS: Blood pressure is 126/66, heart rate 75, respiration 17, temperature 97.9 degrees Fahre nheit. GENERAL: This is an alert and oriented man, currently ill-appearing, in no apparent distress. NECK: Supple. Jugular veins not distended. CHEST: Coarse without crackles. CARDIOVASCULAR: Heart sounds are regular to rate and rhythm. No murmur or gallop. Left precordial ICD insertion site is well healed. ABDOMEN: Benign. Bowel sounds positive. EXTREMITIES: Lower extremities without edema, clubbing or cyanosis. DATABASE: The telemetry strips reveal continued ventricular pacing with underlying atrial fibrillati on. The ins and outs reveal -210 mL balance for the last 24 hours. ASSESSMENT AND PLAN: Mr. Dodd is a very pleasant 77-year-old man with prior history of congestive heart failure and ischemic cardiomyopathy. Recently he has developed worsening heart failure symptom s. He is stuck in atrial fibrillation since mid December. ICD seems to be pacing better during atrial fibrillation before with all of frequent premature ventri cular contractions. PLAN: My plan was to consider elective cardioversion, but he currently decides against it. In fact, he would like to proceed with hospice care and also wishing to disable his ventricular tachycardia/f ibrillation therapy. I had a long discussion with the patient and family and including his and daughter this morning. I detailed the pros and cons about both disabling and leaving the therapies o n. They are all in agreement about turning off the ventricular tachycardia and fibrillation therapie s. We will go with he wishes. I talked to the rep about having that done at a near date. I am stil l happy to see him back as an outpatient for management of his biventricular pacing or other EP issue s as necessary.
--- NOTE | 2018-02-05 12:38 | OP ---
DATE OF PROCEDURE: 02/05/2018 SURGEON: Dr. Rick Rodriguez PROCEDURE: ICD REPROGRAMMING REASON FOR PROCEDURE: Mr. Dodd decided against further ventricular tachycardia treatment therapies . PROCEDURE: This is a [employer] BIV ICD, all ventricular tachycardia and ventric ular fibrillation treatment options will be disabled. We will continue with pacing therapies with a DDTR mode 75-150 beats per minute. CONCLUSION: All ventricular tachycardia/fibrillation treatment options will be disabled on the devic e in agreement with the patient's wishes.
[2018-02-05 16:10] VITALS: BP 121/68; TEMP 98.1
--- NOTE | 2018-02-06 00:19 | DIS ---
DATE OF ADMISSION: 02/01/2018 DATE OF DISCHARGE: 02/05/2018 DISCHARGE DIAGNOSES: 1. Acute on chronic systolic heart failure with ejection fraction 25% to 30%. 2. End-stage congestive heart failure. 3. Ischemic cardiomyopathy with ejection fraction of 25%. 4. Bilateral lower lobe pneumonia with suspected gram-positive cocci. 5. Chronic anticoagulation with Xarelto. 6. Chronic atrial fibrillation with pacemaker. 7. Hypotension, multifactorial. 8. Severe deconditioning. CONSULTATIONS: Dr. Rodriugez with Electrophysiology Service. Dr. Hicks and Dr. Araujo with Cardiol ogy Service. PERTINENT LABORATORY AND X-RAY FINDINGS: Creatinine ranged between 0.86-1.10, estimated GFR ranging between 65-86. Lactic acid level 0.6. LFTs within normal limits. BNP 3689, previously noted 4525 o n 11/16/2017. CBC showed a hemoglobin ranging between 11.4-12.3. Urinalysis negative. Blood cultur es x2 dated 02/01/2018 showed no growth at 48 hours. Portable chest x-ray dated 02/01/2018 showed pu lmonary vascular edema with perihilar interstitial prominence. Small bilateral pleural effusions not ed. HOSPITAL COURSE: The patient was admitted to the telemetry unit after initially presenting with incr eased shortness of breath and cough. The patient with known history of systolic congestive heart ida lure with chest imaging confirming pulmonary edema and bilateral pleural effusions with questionable infiltrate in bilateral lung bases. The patient was placed on oxygen therapy as well as given genera l pulmonary support with IV Lasix. The patient was also placed on IV antibiotic therapy after concer n for suspected pneumonia with IV Levaquin 500 mg daily. The patient also received bronchodilator th erapy and general pulmonary support. The patient was noted with hypotension on multiple antihyperten sives including Entresto as well as additional diuretic therapy with Lasix. The patient underwent ev aluation of his current biventricular pacemaker device with normal functioning device noted and basel ine atrial fibrillation. The patient was slow to clinically improve and remained severely deconditio adair. Due to patient's multiple comorbid status in addition to advanced an end-stage congestive heart failure, the patient and family were wishing to pursue palliative measures and hospice care. The pa tient and family chose [facility] for discharge. The patient was evaluated by the [facility] ectrophysiology Service, undergoing deactivation of the defibrillator aspect of his current AICD quentin ce. The patient currently 100% paced by telemetry monitoring. I have examined the patient at the ti me of discharge and discussed followup instructions with the family and patient. The patient verbali zed understanding and agreement and ready for discharge on 02/05/2018. DISCHARGE MEDICATIONS: 1. Biotin 1 mg p.o. daily. 2. Carvedilol 3.125 mg p.o. b.i.d. 3. Zyrtec 10 mg p.o. daily. 4. Plavix 37.5 mg p.o. at bedtime. 5. Digoxin 0.125 mg p.o. daily. 6. Colace 100 mg p.o. b.i.d. p.r.n. 7. Dutasteride 0.5 mg p.o. daily. 8. Magnesium oxide 400 mg p.o. b.i.d. 9. Protonix 40 mg p.o. daily. 10. Ranexa 500 mg p.o. b.i.d. 11. Xarelto 15 mg p.o. at bedtime. 12. Crestor 20 mg p.o. daily. 13. Entresto 24/26 mg one tablet p.o. b.i.d. 14. Tramadol 50 mg p.o. every 6 hours p.r.n. 15. Lasix 20 mg p.o. b.i.d. 16. Levaquin 500 mg p.o. daily x7 days. 17. Klor-Con 10 mEq p.o. daily. 18. Spironolactone 25 mg p.o. q.a.m. FOLLOWUP: The patient will follow up with Dr. Darrian Ty within 7 days of discharge. The patient will follow up with Dr. Earle Araujo with [facility]. CONDITION ON DISCHARGE: Guarded. ACTIVITY: Ad criselda. DIET: Regular. CODE STATUS: DO NOT RESUSCITATE. DISPOSITION: Home with [facility] on 02/05/2018. Total time preparing and coordinating discharge is 38 minutes.
== END 2018-02-05 17:01 | disposition hospice, home (50) | DRG 291 ==
LOC: ERS 12:01 → 2NO 15:46
PROVIDERS: ADMIT Family Medicine; ATTEND Family Medicine
PROC: 4B02XTZ Measurement of Cardiac Defibrillator, External Approach (ICD-10-PCS; principal; 2018-02-05)
DX: I50.23 Acute on chronic systolic (congestive) heart failure (principal); J15.6 Pneumonia due to other Gram-negative bacteria; T82.199A Other mechanical complication of unspecified cardiac device, initial encounter; I50.84 End stage heart failure; I25.5 Ischemic cardiomyopathy; I48.2 Chronic atrial fibrillation; Z79.01 Long term (current) use of anticoagulants; I95.9 Hypotension, unspecified; R63.0 Anorexia; R63.4 Abnormal weight loss; I25.10 Atherosclerotic heart disease of native coronary artery without angina pectoris
CPT/HCPCS: 36415; 71045; 71046; 80048; 80053; 81003; 82550; 82553; 83605; 83880; 84484; 85007; 85025; 85027; 87040; 93005; 93798; 94640; 94760; A4216; J1940; J1956; J7620